=== PATIENT | female | born 1955 | race Caucasian/White ===

== ENCOUNTER 2018-09-27 07:41 | Inpatient (IN) | payer OTHER ==
[~2018-09-27] VITALS: Ht 144.8 cm; Wt 68.2 kg
[2018-09-27] MEDS ORDERED: PREMARIN0.9 MG PO (07:47)
[2018-09-27] MEDS ORDERED: PROTONIX40 MG PO (07:47)
--- NOTE | 2018-09-27 08:35 | NUR ---
PT STATES SHE LAST DRANK SLIM FAST JUST OPTICAL MANAGER APPROX 8742-8282.
--- NOTE | 2018-09-27 08:49 | NUR ---
DR. MOROCHO AT BEDSIDE.
[2018-09-27 08:53] LABS: INR 0.96 (0.85-1.17); PROTIME 12.3 SECONDS (11.6-15.0)
[2018-09-27 08:56] LABS: ALBUMIN 3.4 g/dL (3.4-5.0); ALKALINE PHOSPHATASE 77 U/L (46-116); ALT (SGPT) 31 U/L (10-68); BILIRUBIN - TOTAL 0.24 mg/dL (0.2-1.3); CALC OSMOLALITY 276 mosm/kg (275-300); CALCIUM 8.9 mg/dL (8.5-10.1); CARBON DIOXIDE 25.9 mmol/L (21.0-32.0); CHLORIDE - SERUM 104 mmol/L (98-107); CREATININE - SERUM 0.7 mg/dL (0.6-1.3); GLUCOSE 92 mg/dL (74-106); POTASSIUM - SERUM 4.3 mmol/L (3.5-5.1); PROTEIN - SERUM 7.7 g/dL (6.4-8.2); SODIUM 137 mmol/L (136-145); UREA NITROGEN 21 mg/dL (7-18); eGFR NON AFRICAN AMERICAN 89 mL/min (90-120)
[2018-09-27 09:02] LABS: BASOPHILS 0.1 % (0-2); EOSINOPHILS 0.7 % (0-7); HEMATOCRIT 35.7 % (36.0-48.0); HEMOGLOBIN 11.8 g/dL (12-16); IMMATURE GRANULOCYTES 0.2 % (0-5); LYMPHOCYTES 12.1 % (15-50); MCH 28.7 pg (26.0-34.0); MCHC 33.1 g/dL (31.0-37.0); MCV 86.9 fL (80.0-100.0); MEAN PLATELET VOLUME 9.7 fL (7.4-10.4); MONOCYTES 8.3 % (2-11); NEUTROPHILS 78.6 % (40-80); PLATELET COUNT 353 10x3/uL (130-400); RBC 4.11 10x6/uL (4.00-5.40); RDW 13.8 % (11.5-14.5); WBC 8.8 10x3/uL (4.8-10.8)
--- NOTE | 2018-09-27 09:07 | NUR ---
SPLINT APPLIED TO RIGHT LOWER EXTREMITY BY DR. MOROCHO.
[2018-09-27 09:13] VITALS: BP 120/79
--- NOTE | 2018-09-27 10:17 | MORECARE ---
CASE MANAGEMENT DISCHARGE SUMMARY PATIENT: VLADIMIR BROOKS UNIT: [id number] ADM DATE: 09/27/18 AGE: 63 : 54 SEX: F ROOM/BED: D.2210 AUTHOR: MENDOZA DICKERSON PHYSICIAN: REFERRING PHYSICIAN: BACILIO BUCK MD DATE OF SERVICE: 09/27/18 Discharge Plan Patient Name: VLADIMIR BROOKS [facility] [facility] 1955 Planned Disposition: Home Anticipated Discharge Date: 09/29/18 Discharge Date: Expected LOS: 2 Initial Reviewer: [email or web address] Initial Review Date: 09/27/2018 Generated: 09/27/18 11:17 am DCPIA - Discharge Planning Initial Assessment Updated by [email or web address]: Rebeca Wharton on 09/27/18 10:14 am * Is the patient Alert and Oriented? Yes * How many steps to enter\exit or inside your home? * PCP Dr. August * [facility]acy [facility] * Preadmission Environment Home with Family * ADLs Independent * Equipment None * Other Equipment Will need walker or crutches at [place]. * List name and contact numbers for known caregivers / representatives who currently or will assist patient after discharge: Juan Brooks - spouse - [phone] Angelina Ross - daughter - [phone] * Verbal permission to speak to the caregivers and representatives has been obtained from the patient. Yes * Community resources currently utilized None * Additional services required to return to the preadmission environment? Yes * Can the patient safely return to the preadmission environment? Yes * Has this patient been hospitalized within the prior 30 days at any hospital? No Patient Name: VLADIMIR BROOKS Page [id number] at 1017 All edits/amendments must be made on the electronic document DICTATION DATE: 09/27/18 1017 SPINNER HYDRAULIC: TEREZA 09/27/18 1017 RPT#: [id number] DC DATE: STATUS: ADM IN [facility] [address] [place] [address] END OF REPORT
--- NOTE | 2018-09-27 10:26 | MORECARE ---
CASE MANAGEMENT DISCHARGE SUMMARY PATIENT: VLADIMIR BROOKS UNIT: [id number] ADM DATE: 09/27/18 AGE: 63 : 53 SEX: F ROOM/BED: D.2210 AUTHOR: MENDOZA DICKERSON PHYSICIAN: REFERRING PHYSICIAN: BACILIO BUCK MD DATE OF SERVICE: 09/27/18 Discharge Plan Patient Name: VLADIMIR BROOKS Facility: [facility]:[place] : 1955 Planned Disposition: Home Anticipated Discharge Date: 09/29/18 Discharge Date: Expected LOS: 2 Initial Reviewer: [email or web address] Initial Review Date: 09/27/2018 Generated: 09/27/18 11:25 am DCP- Discharge Planning Updated by [email or web address]: Rebeca Wharton on 09/27/18 9:[address] Patient Name: VLADIMIR BROOKS Admission Status: ER Accout number: [id number] Admission Date: 09-27-2018 : 1955 Admission Diagnosis: Attending: BACILIO BUCK Current LOS: 1 Anticipated DC Date: 09-29-2018 Planned Disposition: Home Primary Insurance: [employer] Discharge Planning Comments: DC PLAN: Home w/ spouse. ANTICIPATED DC NEEDS: Walker or crutches. No preference on DME company. CM met with patient to complete initial dc planning assessment. CM educated patient on the CM role and verbal consent given by patient to complete assessment. CM verified patient's address, phone number, and emergency contact phone numbers. Patient lives at home with her and has been independent up until now. At discharge patient plans to return home w/ her and feels this is a safe discharge. CM discussed availability of home health, rehab services, and medical equipment. Patient reports she will need ambulartory aide at dc. Walker or crutches. AIYANA signed by patient and she has no preference on DME company. Patient reports her will transport her home at time of discharge. CM will continue to follow and will assist as needed with dc plans/needs. Continuity Reader: Rebeca Wharton RN, [facility] DCPIA - Discharge Planning Initial Assessment Updated by [email or web address]: Rebeca Wharton on 09/27/18 10:14 am * Is the patient Alert and Oriented? Yes * How many steps to enter\exit or inside your home? * PCP Dr. August * Pharmacy [facility] * Preadmission Environment Home with Family * ADLs Independent * Equipment None * Other Equipment Will need walker or crutches at [place]. * List name and contact numbers for known caregivers / representatives who currently or will assist patient after discharge: Juan Brooks - spouse - [phone] Angelina Ross - daughter - [phone] * Verbal permission to speak to the caregivers and representatives has been obtained from the patient. Yes * Community resources currently utilized None * Additional services required to return to the preadmission environment? Yes * Can the patient safely return to the preadmission environment? Yes * Has this patient been hospitalized within the prior 30 days at any hospital? No Last DP export: 09/27/18 9:17 am Patient Name: VLADIMIR BROOKS Page [id number] at 1026 All edits/amendments must be made on the electronic document DICTATION DATE: 09/27/18 1025 MEDICAL SECRETARY: TEREZA 09/27/18 1025 RPT#: [id number] [place] DATE: STATUS: ADM IN [facility] [address] [place] [address] END OF REPORT
[2018-09-27 11:17] VITALS: BP 108/59; BMI 32.5
[2018-09-27] MEDS ORDERED: VITAMIN D2000 UNIT PO (11:19)
[2018-09-27] MEDS ORDERED: FLORAJEN3 CAPS460 MG PO (11:21)
[2018-09-27 12:31] VITALS: Ht 144.8 cm; Wt 68.2 kg
[2018-09-27 13:07] VITALS: BP 127/75
[2018-09-27 19:50] VITALS: BP 137/74
--- NOTE | 2018-09-27 20:00 | NUR ---
RECIEVED TO FLOOR, A&O X 4. DENIES PAIN. 2L O2 IN USE. FAMILY AT BEDSIDE, DRESSING TO RIGHT ANKLE C/D/I. TOLERATING APPLEJUICE. DENIES FURTHER NEEDS, WILL CONTINUE TO MONITOR.
[2018-09-27 20:43] VITALS: BP 138/89
[2018-09-28 00:57] VITALS: BP 141/94
--- NOTE | 2018-09-28 03:17 | NUR ---
TITERED O2 TO 1L, SPO2 98%. WILL CONTINUE TO MONITOR.
--- NOTE | 2018-09-28 03:17 | NUR ---
SPO2 965 ON ROOM AIR, WILL CONTINUE TO MONITOR.
--- NOTE | 2018-09-28 04:42 | NUR ---
I have reviewed this patient and I concur with the Shift Assessment completed by the Licensed Practical Nurse today this shift.
[2018-09-28 05:43] VITALS: BP 133/76
[2018-09-28 06:41] LABS: BASOPHILS 0 % (0-2); EOSINOPHILS 0 % (0-7); HEMATOCRIT 31.7 % (36.0-48.0); HEMOGLOBIN 10.5 g/dL (12-16); IMMATURE GRANULOCYTES 0.1 % (0-5); LYMPHOCYTES 8.4 % (15-50); MCH 28.6 pg (26.0-34.0); MCHC 33.1 g/dL (31.0-37.0); MCV 86.4 fL (80.0-100.0); NEUTROPHILS 85.5 % (40-80); PLATELET COUNT 331 10x3/uL (130-400); RBC 3.67 10x6/uL (4.00-5.40); RDW 14.1 % (11.5-14.5)
[2018-09-28 06:59] LABS: CALC OSMOLALITY 276 mosm/kg (275-300); CALCIUM 8.4 mg/dL (8.5-10.1); CARBON DIOXIDE 23.1 mmol/L (21.0-32.0); CHLORIDE - SERUM 105 mmol/L (98-107); CREATININE - SERUM 0.6 mg/dL (0.6-1.3); GLUCOSE 109 mg/dL (74-106); MAGNESIUM - SERUM 1.7 mg/dL (1.8-2.4); PHOSPHOROUS 2.9 mg/dL (2.5-4.9); POTASSIUM - SERUM 3.9 mmol/L (3.5-5.1); SODIUM 139 mmol/L (136-145); eGFR NON AFRICAN AMERICAN > 90 mL/min (90-120)
[2018-09-28 07:00] LABS: UREA NITROGEN 8 mg/dL (7-18)
--- NOTE | 2018-09-28 07:55 | NUR ---
ALERT AND ORIENTED. LUNGS CLEAR BILATERALLY IN ALL SUH. HEART SOUNDS S1 AND S2 HEARD IN ALL SUH. BOWEL SOUNDS ACTIVE X 4. SKIN INTACT WITHOUT REDNESS. DRSG INTACT TO RLE. PRN TORADOL GIVEN FOR HEADACHE. DENIES FURTHER NEEDS. DENIES PAIN. BED LOW. FALL PRECAUTIONS IN PLACE. CALL BROWN AND PERSONAL ITEMS IN REACH. WILL CONTINUE TO MONITOR.
[2018-09-28 08:28] VITALS: BP 152/84
[2018-09-28] MEDS ORDERED: PERCOCET 10-321 EAC1 PO (08:58)
[2018-09-28] MEDS ORDERED: ELIQUIS2.5 MG PO (09:44)
--- NOTE | 2018-09-28 11:16 | NUR ---
RESTING IN BED. DENIES PAIN. DENIES NEEDS. WILL CONTINUE TO MONITOR.
--- NOTE | 2018-09-28 11:48 | MORECARE ---
CASE MANAGEMENT DISCHARGE SUMMARY PATIENT: VLADIMIR BROOKS UNIT: [id number] ADM DATE: 09/27/18 AGE: 63 : 53 SEX: F ROOM/BED: D.2210 AUTHOR: MENDOZA DICKERSON PHYSICIAN: REFERRING PHYSICIAN: BACILIO BUCK MD DATE OF SERVICE: 09/28/18 Discharge Plan Patient Name: VLADIMIR BROOKS Facility: [facility]:[place] : 1955 Planned Disposition: Home Anticipated Discharge Date: 09/29/18 Discharge Date: Expected LOS: 2 Initial Reviewer: [email or web address] Initial Review Date: 09/27/2018 Generated: 09/28/18 12:47 pm DCP- Discharge Planning Updated by [email or web address]: Rebeca Wharton on 09/27/18 9:[address] Patient Name: VLADIMIR BROOKS Admission Status: ER Accout number: [id number] Admission Date: 09-27-2018 : 1955 Admission Diagnosis: Attending: BACILIO BUCK Current LOS: 1 Anticipated DC Date: 09-29-2018 Planned Disposition: Home Primary Insurance: [employer] Discharge Planning Comments: DC PLAN: Home w/ spouse. ANTICIPATED DC NEEDS: Walker or crutches. No preference on DME company. CM met with patient to complete initial dc planning assessment. CM educated patient on the CM role and verbal consent given by patient to complete assessment. CM verified patient's address, phone number, and emergency contact phone numbers. Patient lives at home with her and has been independent up until now. At discharge patient plans to return home w/ her and feels this is a safe discharge. CM discussed availability of home health, rehab services, and medical equipment. Patient reports she will need ambulartory aide at dc. Walker or crutches. AIYANA signed by patient and she has no preference on DME company. Patient reports her will transport her home at time of discharge. CM will continue to follow and will assist as needed with dc plans/needs. Child Development Associate Teacher: Rebeca Wharton RN, [facility] DCPIA - Discharge Planning Initial Assessment Updated by [email or web address]: Rebeca Wharton on 09/27/18 10:14 am * Is the patient Alert and Oriented? Yes * How many steps to enter\exit or inside your home? * PCP Dr. August * [facility]acy [facility] * Preadmission Environment Home with Family * ADLs Independent * Equipment None * Other Equipment Will need walker or crutches at al. * List name and contact numbers for known caregivers / representatives who currently or will assist patient after discharge: Juan Brooks - spouse - [phone] Angelina Ross - daughter - [phone] * Verbal permission to speak to the caregivers and representatives has been obtained from the patient. Yes * Community resources currently utilized None * Additional services required to return to the preadmission environment? Yes * Can the patient safely return to the preadmission environment? Yes * Has this patient been hospitalized within the prior 30 days at any hospital? No External Providers [facility] Contact Date: Service Request Date: Service Type: Resolution: Reviewer: Comments: Last DP export: 09/27/18 9:26 am Patient Name: VLADIMIR BROOKS Page [id number] at 1148 All edits/amendments must be made on the electronic document DICTATION DATE: 09/28/18 1147 FINISH MACHINE TENDER: TEREZA 09/28/18 1147 RPT#: [id number] [place] DATE: STATUS: ADM IN [facility] [address] [place] [address] END OF REPORT
--- NOTE | 2018-09-28 11:55 | MORECARE ---
CASE MANAGEMENT DISCHARGE SUMMARY PATIENT: VLADIMIR BROOKS UNIT: [id number] ADM DATE: 09/27/18 AGE: 63 : 53 SEX: F ROOM/BED: D.2210 AUTHOR: MENDOZA DICKERSON PHYSICIAN: REFERRING PHYSICIAN: BACILIO BUCK MD DATE OF SERVICE: 09/28/18 Discharge Plan Patient Name: VLADIMIR BROOKS Facility: [facility]:[place] : 1955 Planned Disposition: Home Anticipated Discharge Date: 09/29/18 Discharge Date: Expected LOS: 2 Initial Reviewer: [email or web address] Initial Review Date: 09/27/2018 Generated: 09/28/18 12:54 pm DCP- Discharge Planning Updated by [email or web address]: Rebeca Wharton on 09/27/18 9:[address] Patient Name: VLADIMIR BROOKS Admission Status: ER Accout number: [id number] Admission Date: 09-27-2018 : 1955 Admission Diagnosis: Attending: BACILIO BUCK Current LOS: 1 Anticipated DC Date: 09-29-2018 Planned Disposition: Home Primary Insurance: [employer] Discharge Planning Comments: DC PLAN: Home w/ spouse. ANTICIPATED DC NEEDS: Walker or crutches. No preference on DME company. CM met with patient to complete initial dc planning assessment. CM educated patient on the CM role and verbal consent given by patient to complete assessment. CM verified patient's address, phone number, and emergency contact phone numbers. Patient lives at home with her and has been independent up until now. At discharge patient plans to return home w/ her and feels this is a safe discharge. CM discussed availability of home health, rehab services, and medical equipment. Patient reports she will need ambulartory aide at dc. Walker or crutches. AIYANA signed by patient and she has no preference on DME company. Patient reports her will transport her home at time of discharge. CM will continue to follow and will assist as needed with dc plans/needs. Cant Gang Sawyer: Rebeca Wharton RN, [facility] DCPIA - Discharge Planning Initial Assessment Updated by [email or web address]: Rebeca Wharton on 09/27/18 10:14 am * Is the patient Alert and Oriented? Yes * How many steps to enter\exit or inside your home? * PCP Dr. August * Pharmacy [facility] * Preadmission Environment Home with Family * ADLs Independent * Equipment None * Other Equipment Will need walker or crutches at ri. * List name and contact numbers for known caregivers / representatives who currently or will assist patient after discharge: Juan Brooks - spouse - [phone] Angelina Ross - daughter - [phone] * Verbal permission to speak to the caregivers and representatives has been obtained from the patient. Yes * Community resources currently utilized None * Additional services required to return to the preadmission environment? Yes * Can the patient safely return to the preadmission environment? Yes * Has this patient been hospitalized within the prior 30 days at any hospital? No External Providers External Provider: [facility] Next Contact Date: Service Request Date: Service Type: Resolution: Reviewer: Comments: Last DP export: 09/28/18 10:48 am Patient Name: VLADIMIR BROOKS Page 81990 at 1155 All edits/amendments must be made on the electronic document DICTATION DATE: 09/28/18 1154 WIRE WEAVER: TEREZA 09/28/18 1154 RPT#: [id number] [place] DATE: STATUS: ADM IN [facility] [address] [place] [address] END OF REPORT
--- NOTE | 2018-09-28 12:03 | MORECARE ---
CASE MANAGEMENT DISCHARGE SUMMARY PATIENT: VLADIMIR BROOKS UNIT: [id number] ADM DATE: 09/27/18 AGE: 63 : 53 SEX: F ROOM/BED: D.2210 AUTHOR: MENDOZA DICKERSON PHYSICIAN: REFERRING PHYSICIAN: BACILIO BUCK MD DATE OF SERVICE: 09/28/18 Discharge Plan Patient Name: VLADIMIR BROOKS Facility: [facility]:[place] : 1955 Planned Disposition: Home Anticipated Discharge Date: 09/29/18 Discharge Date: Expected LOS: 2 Initial Reviewer: [email or web address] Initial Review Date: 09/27/2018 Generated: 09/28/18 1:03 pm Comments DCP- Discharge Planning Updated by [email or web address]: Melissa Cagle on 09/28/18 11:[address] PATIENT IS DISCHARGING HOME TODAY, SHE WILL NEED A KNEE WALKER AND REG WALKER. SHE DOES NOT CARE WHERE SHE GETS IT, [facility] DOES NOT TAKE HER INSURANCE ORDER WAS SENT TO [facility] AND THEY WILL DELIVER TO HOSPITAL. CM TO FOLLOW AND ASSIST WITH DC PLANNING PATIENT DID NOT WANT HOME HEALTH DCP- Discharge Planning Updated by [email or web address]: Rebeca Wharton on 09/27/18 9:[address] Patient Name: VLADIMIR BROOKS Admission Status: ER Accout number: [id number] Admission Date: 09-27-2018 : 1955 Admission Diagnosis: Attending: BACILIO BUCK Current LOS: 1 Anticipated DC Date: 09-29-2018 Planned Disposition: Home Primary Insurance: [employer] Discharge Planning Comments: DC PLAN: Home w/ spouse. ANTICIPATED DC NEEDS: Walker or crutches. No preference on DME company. CM met with patient to complete initial dc planning assessment. CM educated patient on the CM role and verbal consent given by patient to complete assessment. CM verified patient's address, phone number, and emergency contact phone numbers. Patient lives at home with her and has been independent up until now. At discharge patient plans to return home w/ her and feels this is a safe discharge. CM discussed availability of home health, rehab services, and medical equipment. Patient reports she will need ambulartory aide at dc. Walker or crutches. AIYANA signed by patient and she has no preference on DME company. Patient reports her will transport her home at time of discharge. CM will continue to follow and will assist as needed with dc plans/needs. Music Orchestrator: Rebeca Wharton RN, [facility] DCPIA - Discharge Planning Initial Assessment Updated by [email or web address]: Rebeca Wharton on 09/27/18 10:14 am * Is the patient Alert and Oriented? Yes * How many steps to enter\exit or inside your home? * PCP Dr. August * [facility]acy [facility] * Preadmission Environment Home with Family * ADLs Independent * Equipment None * Other Equipment Will need walker or crutches at dc. * List name and contact numbers for known caregivers / representatives who currently or will assist patient after discharge: Juan Brooks - spouse - [phone] Angelina Ross - daughter - [phone] * Verbal permission to speak to the caregivers and representatives has been obtained from the patient. Yes * Community resources currently utilized None * Additional services required to return to the preadmission environment? Yes * Can the patient safely return to the preadmission environment? Yes * Has this patient been hospitalized within the prior 30 days at any hospital? No Coverage Notice Reviewer: [email or web address] - Melissa Cagle Notice Issued Date-Time: 09/28/2018 11:55 Notice Type: Patient Choice Letter Notice Delivered To: Patient Relationship to Patient: Starter Mechanic Name: Delivery Method: HAND - Hand Delivered Salome Days: Prior Verbal Notification: Recipient Understood Notice: Yes Recipient Signature: Yes Med Rec Note Co-signed by Attending: Coverage Notice Comment: Last DP export: 09/28/18 10:55 am Patient Name: VLADIMIR BROOKS Page 96131 at 1203 All edits/amendments must be made on the electronic document DICTATION DATE: 09/28/18 120 PAVING CONTRACTOR: TEREZA 09/28/18 120 RPT#: [id number] [place] DATE: STATUS: ADM IN [facility] [address] [place] [address] END OF REPORT
[2018-09-28 12:42] VITALS: BP 136/78
--- NOTE | 2018-09-28 13:05 | NUR ---
PATIENT STATES THINKS SHE SHOULD BE GETTING BOOT FOR LLE FOR [employer]. MEHDI LORENZ NOTIFIED AND STATED WILL CHECK.
--- NOTE | 2018-09-28 15:10 | NUR ---
DISCHARGE EDUCATION PROVIDED BOTH WRITTEN AND VERBAL. VERBALIZED UNDERSTANDING. DENIES FURTHER QUESTIONS. IV REMOVED FROM [facility]FA WITH TIP INTACT. BOOT PLACED TO LLE BY PHYSICAL THERAPY. DENIES FURTHER NEEDS. PATIENT DISCHARGED HOME WITH WITH ALL BELONGINGS.
[2018-09-29] MEDS ORDERED: PHENERGAN25 M1 PO (19:17)
--- NOTE | 2018-10-01 14:18 | MORECARE ---
CASE MANAGEMENT DISCHARGE SUMMARY PATIENT: VLADIMIR BROOKS UNIT: [id number] ADM DATE: 09/27/18 AGE: 63 : 53 SEX: F ROOM/BED: D.2210 AUTHOR: TUAN,DOC PHYSICIAN: REFERRING PHYSICIAN: BACILIO BUCK MD DATE OF SERVICE: 10/01/18 Discharge Plan Patient Name: VLADIMIR BROOKS Facility: [facility]:[place] : 1955 Planned Disposition: Home Anticipated Discharge Date: 09/29/18 Discharge Date: 09/28/2018 Expected LOS: 2 Initial Reviewer: [email or web address] Initial Review Date: 09/27/2018 Generated: 10/01/18 3:18 pm Comments DCP- Discharge Planning Updated by [email or web address]: Melissa Cagle on 09/28/18 11:[address] PATIENT IS DISCHARGING HOME TODAY, SHE WILL NEED A KNEE WALKER AND REG WALKER. SHE DOES NOT CARE WHERE SHE GETS IT, [facility] DOES NOT TAKE HER INSURANCE ORDER WAS SENT [facility] AND THEY WILL DELIVER TO HOSPITAL. CM TO FOLLOW AND ASSIST WITH DC PLANNING PATIENT DID NOT WANT HOME HEALTH DCP- Discharge Planning Updated by [email or web address]: Rebeca Wharton on 09/27/18 9:[address] Patient Name: VLADIMIR BROOKS Admission Status: ER Accout number: [id number] Admission Date: 09-27-2018 : 1955 Admission Diagnosis: Attending: BACILIO BUCK Current LOS: 1 Anticipated DC Date: 09-29-2018 Planned Disposition: Home Primary Insurance: [employer] Discharge Planning Comments: DC PLAN: Home w/ spouse. ANTICIPATED DC NEEDS: Walker or crutches. No preference on DME company. CM met with patient to complete initial dc planning assessment. CM educated patient on the CM role and verbal consent given by patient to complete assessment. CM verified patient's address, phone number, and emergency contact phone numbers. Patient lives at home with her and has been independent up until now. At discharge patient plans to return home w/ her and feels this is a safe discharge. CM discussed availability of home health, rehab services, and medical equipment. Patient reports she will need ambulartory aide at dc. Walker or crutches. AIYANA signed by patient and she has no preference on DME company. Patient reports her will transport her home at time of discharge. CM will continue to follow and will assist as needed with dc plans/needs. Butcher Meat: Rebeca Wharton RN, [facility] DCPIA - Discharge Planning Initial Assessment Updated by [email or web address]: Rebeca Wharton on 09/27/18 10:14 am * Is the patient Alert and Oriented? Yes * How many steps to enter\exit or inside your home? * PCP Dr. August * Pharmacy [facility] * Preadmission Environment Home with Family * ADLs Independent * Equipment None * Other Equipment Will need walker or crutches at dc. * List name and contact numbers for known caregivers / representatives who currently or will assist patient after discharge: Juan Brooks - spouse - [phone] Angelina Ross - daughter - [phone] * Verbal permission to speak to the caregivers and representatives has been obtained from the patient. Yes * Community resources currently utilized None * Additional services required to return to the preadmission environment? Yes * Can the patient safely return to the preadmission environment? Yes * Has this patient been hospitalized within the prior 30 days at any hospital? No Coverage Notice Reviewer: [email or web address] Zhanna Cagle Notice Issued Date-Time: 09/28/2018 11:55 Notice Type: Patient Choice Letter Notice Delivered To: Patient Relationship to Patient: Fire Watcher Name: Delivery Method: HAND - Hand Delivered Salome Days: Prior Verbal Notification: Recipient Understood Notice: Yes Recipient Signature: Yes Med Rec Note Co-signed by Attending: Coverage Notice Comment: Last DP export: 09/28/18 11:03 am Patient Name: VLADIMIR BROOKS Page 11136 at 1418 All edits/amendments must be made on the electronic document DICTATION DATE: 10/01/181416 PEOPLESOFT HRMS DEVELOPER: TEREZA 10/01/181416 RPT#: [id number] [place] DATE:09/28/18 STATUS: DIS IN [facility] [address] [place] [address] END OF REPORT
== END 2018-09-28 15:37 | disposition home or self-care (01) | DRG 494 ==
LOC: D.ER 07:41 → D.MS 09:30 → D.ER 09:38 → D.MS 09-28 15:37
PROVIDERS: Family Medicine; Orthopaedic Surgery; ADMIT Family Medicine; ATTEND Family Medicine
PROC: 0QSG04Z Reposition Right Tibia with Internal Fixation Device, Open Approach (ICD-10-PCS; 2018-09-27)
PROC: 0SSF0ZZ Reposition Right Ankle Joint, Open Approach (ICD-10-PCS; 2018-09-27)
PROC: 0QSJ04Z Reposition Right Fibula with Internal Fixation Device, Open Approach (ICD-10-PCS; principal; 2018-09-27 15:30)
DX: S82.841A Displaced bimalleolar fracture of right lower leg, initial encounter for closed fracture (principal); W19.XXXA Unspecified fall, initial encounter

== ENCOUNTER 2018-09-29 18:12 | Emergency (ER) | payer OTHER ==
[~2018-09-29] VITALS: Ht 144.8 cm; Wt 68.2 kg
[~2018-09-29 18:12] MED LIST: ELIQUIS2.5 MG PO; FLORAJEN3 CAPS460 MG PO; PERCOCET 10-321 EAC1 PO; PREMARIN0.9 MG PO; PROTONIX40 MG PO; VITAMIN D2000 UNIT PO
[2018-09-29 18:18] VITALS: Ht 144.8 cm; Wt 68.2 kg
[2018-09-29] MEDS ORDERED: PHENERGAN25 M1 PO (19:17)
[2018-09-29 19:33] VITALS: BP 132/74
== END 2018-09-29 19:34 | disposition home or self-care (01) ==
LOC: D.ER 18:12
DX: R60.0 Localized edema (principal)

== ENCOUNTER 2019-12-09 15:30 | Outpatient (CLI) | payer MEDICARE, OTHER ==
[2018-09-29 18:18] VITALS: BMI 32.5
[~2019-12-09 15:30] MED LIST changes: +PHENERGAN25 M1 PO
== END 2019-12-09 23:59 | disposition home or self-care (01) ==
LOC: D.MAMMO 15:30
PROVIDERS: ATTEND Family Medicine
DX: Z12.31 Encounter for screening mammogram for malignant neoplasm of breast (principal)